=== PATIENT | female | born 1980 | race Two or more races ===

== ENCOUNTER 2020-10-19 22:14 | Emergency (ER) | payer OTHER ==
[~2020-10-19] VITALS: Ht 177.8 cm; Wt 163.3 kg
[2020-10-19 23:08] LABS: Urine Bacteria NONE SEEN /hpf (None Seen); Urine Blood 1+ /uL (Negative); Urine Hyaline Cast FEW /lpf (0 - 2); Urine Mucus FEW (None Seen); Urine Specific Gravity 1.037 (1.001-1.035); Urine WBC 2 /hpf (0 - 5)
[2020-10-19 23:18] LABS: Alcohol, Urine < 3.0 mg/dL (0-10); Amphetamine Screen, Urine NEGATIVE (NEGATIVE); Barbiturate Scree,Urine NEGATIVE (NEGATIVE); Benzodiazephine Screen, Urine NEGATIVE (NEGATIVE); Cannabinoid Screen, Urine NEGATIVE (NEGATIVE); Cocaine Screen, Urine NEGATIVE (NEGATIVE); Opiate Scree,Urine NEGATIVE (NEGATIVE); Phencyclidine Screen, Urine NEGATIVE (NEGATIVE)
[2020-10-19 23:27] LABS: Basophils # (auto) 0.1 10 ^3/uL (0-0.2); Basophils % (auto) 0.4 % (0.0-2.0); Eosinophils # (auto) 0 10 ^3/uL (0-0.8); Monocytes # (auto) 0.7 10 ^3/uL (0-1.3); Neutrophils % (auto) 84.1 % (37.0-80.0)
[2020-10-19 23:29] LABS: Hematocrit 49.7 % (36.0-46.0); Hemoglobin 17.3 g/dL (12.2-16.2); Lymphocytes # (auto) 1.6 10 ^3/uL (0.4-5.4); Lymphocytes % (auto) 10.5 % (10.0-50.0); Mean Corpuscular Hgb Conc. 34.7 g/dL (32.0-36.0); Mean Corpuscular Volume 83.5 fL (80.0-100.0); Neutrophils # (auto) 12.4 10 ^3/uL (1.6-8.6); Nucleated Red Blood Cells % 0.3 %; Platelet Count (auto) 279 10^3/uL (140-450); Red Blood Cells 5.96 10^6/uL (4.0-5.20); Red Cell Distribution Width 14.3 % (11.8-14.3); White Blood Cell 14.8 10^3/uL (4.4-10.8)
[2020-10-19] MEDS ORDERED: ACETAMINOPHEN 650 MG RECT SUPP PR ONE (23:30)
[2020-10-19 23:49] LABS: INR 1.08 (0.9-1.15); Partial Thromboplastin Time 20.7 sec (23.0-31.2)
[2020-10-19 23:53] LABS: Albumin 3.6 g/dL (3.4-5.0); Anion Gap 13 (5-15); Blood Alcohol < 3.0 mg/dL (0-5); Blood Urea Nitrogen 30 mg/dL (7-18); Calcium 8.7 mg/dL (8.5-10.1); Carbon Dioxide 22 mmol/L (21-32); Chloride 99 mmol/L (98-107); Glucose 328 mg/dL (74-106); Magnesium 2.6 mg/dL (1.6-2.6); Potassium 3.5 mmol/L (3.5-5.1); Sodium 134 mmol/L (136-145)
[2020-10-19 23:58] LABS: Lactic Acid w/Reflex 2.4 mmol/L (0.4-2.0)
[2020-10-20] LABS: Alanine Aminotransferase 29 U/L (13-56); Alkaline Phosphatase 67 U/L (45-117); Aspartate Aminotransferase 12 U/L (15-37); BUN/Creatinine Ratio 34.9; GFR African American 95 mL/min; GFR Non-African American 79 mL/min; Total Protein 8.7 g/dL (6.4-8.2)
[2020-10-20] MEDS ORDERED: KETOROLAC TROMETH 30 MG/ML 1ML VIAL IV ONE (01:30)
[2020-10-20] MEDS ORDERED: SODIUM CHLORIDE 0.9% 1,000 ML IV ONE (01:30)
[2020-10-20] MEDS ORDERED: PIPERACILLIN-TAZOB 3.375GM 100 ML IV ONE (01:30)
[2020-10-20] MEDS ORDERED: LABETALOL HCL 5 MG/ML 4ML SYRINGE IV ONE (01:30)
[2020-10-20] MEDS ORDERED: VANCOMYCIN 1GM/250ML 250 ML IV ONE (01:30)
[2020-10-20] MEDS ORDERED: VANCOMYCIN PER PHARMACY 0 MG IV SCH (01:30)
[2020-10-20] MEDS ORDERED: ACYCLOVIR SOD 50MG/ML 800 MG in SODIUM CHL 0.9% 250 ML IV ONE (06:00)
[2020-10-20] MEDS ORDERED: ACETAMINOPHEN 650 MG RECT SUPP PR ONE (08:00)
[2020-10-20 09:19] VITALS: BP 143/95
[2020-10-20] MEDS ORDERED: VANCOMYCIN 1GM/250ML 250 ML IV SCH (10:00)
== END 2020-10-20 10:09 | disposition home or self-care (01) ==
LOC: EDBD 22:14 → ER 22:18
DX: A41.9 Sepsis, unspecified organism (principal); G03.9 Meningitis, unspecified; I16.1 Hypertensive emergency; E11.9 Type 2 diabetes mellitus without complications; G93.41 Metabolic encephalopathy; I10 Essential (primary) hypertension; Z20.822 Contact with and (suspected) exposure to COVID-19
CPT/HCPCS: 36415; 36600; 70450; 71045; 72125; 80053; 80307; 80320; 81001; 81025; 82010; 82805; 83605; 83735; 84484; 84702; 85025; 85610; 85730; 87040; 87086; 87426; 93005; 96361; 96365; 96367; 96375; 99291; C9803; J0133; J1885; J2543; J3370; J3490; J7030; J7050; U0003